=== PATIENT | male | born 1975 | race Hispanic/Latino ===

== ENCOUNTER → 2025-02-05 | Outpatient (CLI) | payer OTHER ==
--- NOTE | 2025-02-05 14:31 | HMCIMG ---
Exam Type: CT lumbar spine without contrast Technique: Spiral axial images were performed from T12 to the sacrum. Both sagittal and coronal reconstructions were performed. Findings: There is normal alignment of the vertebral bodies. There are no fractures. There is facet hypertrophy. There are spondylitic changes. There are no large bulges or herniations. The prevertebral soft tissues are normal. IMPRESSION: Degenerative changes as noted.
== END | disposition home or self-care (01) ==
LOC: RAH 13:45
PROVIDERS: ATTEND Physical Medicine & Rehabilitation
DX: M47.816 Spondylosis without myelopathy or radiculopathy, lumbar region (principal); M47.9 Spondylosis, unspecified
CPT/HCPCS: 72131

== ENCOUNTER → 2025-02-07 | Outpatient (CLI) | payer OTHER ==
--- NOTE | 2025-02-07 12:46 | HMCIMG ---
Lumbar spine series including lateral flexion and extension views Comparison Study: none History: SPONDYLOSIS; Spondylosis without myelopathy or radiculopathy, lumbar region Findings: Exam of the lumbosacral spine demonstrates no evidence of fracture, subluxation, or significant degenerative change. The lateral flexion and extension views demonstrate no abnormal motion. There are mild spondylitic changes and mild degenerative changes of the facet joints. The disc spaces are intact. The facet joints are preserved without significant degenerative changes Bone mineralization is normal. Impression: No abnormal motion on flexion-extension lateral views. There are degenerative changes as noted.
== END | disposition home or self-care (01) ==
LOC: RAH 09:06
PROVIDERS: ATTEND Physical Medicine & Rehabilitation
DX: M47.816 Spondylosis without myelopathy or radiculopathy, lumbar region (principal)
CPT/HCPCS: 72114

== ENCOUNTER → 2025-03-22 | Outpatient (CLI) | payer OTHER ==
--- NOTE | 2025-03-22 16:19 | HMCIMG ---
THORACIC SPINE 3VWS HISTORY: Pain COMPARISON: None FINDINGS: 3 images of the thoracic spine were obtained. There is straightening of normal lordotic curvature which may be related to muscle spasm or positioning. No loss of vertebral height is seen. No fracture or dislocation is seen. Degenerative changes are seen. IMPRESSION: 1. No fracture is seen.
== END | disposition home or self-care (01) ==
LOC: RAH 10:11
PROVIDERS: ATTEND Physical Medicine & Rehabilitation
DX: M47.814 Spondylosis without myelopathy or radiculopathy, thoracic region (principal); M54.6 Pain in thoracic spine
CPT/HCPCS: 72072